=== PATIENT | female | born 1975 ===

== ENCOUNTER 2018-12-18 15:05 | Emergency (ER) | payer MEDICAID ==
[2018-12-18 15:17] VITALS: TEMP 98.2; O2SAT 100
[2018-12-18] MEDS ORDERED: guaiFENesin 200 mg/10 ml Syrup UD PO ONE (15:37)
[2018-12-18] MEDS ORDERED: Albuterol-Ipratrop 3 mg / 0.5 (3 ml) UD IH STA (15:37)
--- NOTE | 2018-12-18 15:43 | ED PDOC ---
Arrival/HPI - General Chief Complaint: Shortness Of Breath Time Seen by Provider: 12/18/18 15:12 Historian: Patient - History of Present Illness Narrative History of Present Illness (Text): 12/18/18 15:41 A 43 year old female, whose past medical history includes asthma, hypertension, and diabetes, presents to the emergency department complaining of cough, congestion, and asthma symptoms intermittently for 1 month. Patient reports also experiencing body aches. Patient denies any nausea, vomiting, chest pain, shortness of breath, or any other complaints at this time. Denies any recent travel or any sick contacts. PMD: Dr. Newton Time/Duration: Other (1 month) Symptom Course: Intermittent Past Medical History - Provider Review Nursing Documentation Reviewed: Yes - Infectious Disease Hx of Infectious Diseases: None - Reproductive Menopause: No - Cardiac Hx Cardiac Disorders: Yes Hx Hypertension: Yes - Pulmonary Other/Comment: enlarged heart - Endocrine/Metabolic Hx Diabetes Mellitus Type 2: Yes - Hematological/Oncological Hx Blood Disorders: No - Psychiatric Hx Substance Use: No - Anesthesia Hx Anesthesia: No Family/Social History - Physician Review Nursing Documentation Reviewed: Yes Family/Social History: No Known Family HX Smoking Status: Unknown If Ever Smoked Hx Alcohol Use: No Hx Substance Use: No Allergies/Home Meds Allergies/Adverse Reactions: Allergies No Known Allergies Allergy (Verified 12/18/18 15:17) Home Medications: Home Meds Medication Instructions Recorded Confirmed Labetalol [Trandate] 100 mg PO DAILY 12/18/18 12/18/18 MetFORMIN [glucOPHAGE] 500 mg PO TID 12/18/18 12/18/18 amLODIPine [Norvasc] 10 mg PO DAILY 12/18/18 12/18/18 Review of Systems - Physician Review All systems were reviewed & negative as marked: Yes - Review of Systems ENT: Sinus Congestion Respiratory: Cough, Wheezing. absent: SOB Cardiovascular: absent: Chest Pain Gastrointestinal: absent: Nausea, Vomiting Physical Exam Vital Signs Reviewed: Yes Vital Signs Temp Pulse Resp BP Pulse Ox 12/18/18 15:13 98.2 F 82 20 164/92 H 100 Temperature: Afebrile Blood Pressure: Hypertensive Pulse: Regular Respiratory Rate: Normal Appearance: Positive for: Well-Appearing, Non-Toxic, Comfortable Pain Distress: Mild Mental Status: Positive for: Alert and Oriented X 3 - Systems Exam Head: Present: Atraumatic, Normocephalic Pupils: Present: PERRL Extroacular Muscles: Present: EOMI Conjunctiva: Present: Normal Mouth: Present: Moist Mucous Membranes Neck: Present: Normal Range of Motion Respiratory/Chest: Present: Clear to Auscultation, Good Air Exchange. No: Respiratory Distress, Accessory Muscle Use Cardiovascular: Present: Regular Rate and Rhythm, Normal S1, S2. No: Murmurs Abdomen: No: Tenderness, Distention, Peritoneal Signs Back: Present: Normal Inspection Upper Extremity: Present: Normal Inspection. No: Cyanosis, Edema Lower Extremity: Present: Normal Inspection. No: Edema Neurological: Present: GCS=15, CN II-XII Intact, Speech Normal Skin: Present: Warm, Dry, Normal Color. No: Rashes Psychiatric: Present: Alert, Oriented x 3, Normal Insight, Normal Concentration Medical Decision Making ED Course and Treatment: 12/18/18 15:42 Impression: 43 year old female with cough, congestion, and asthma symptoms. Plan: -- Chest X-ray -- Duoneb -- Robitussin -- POC Urine Test -- Influenza A/B Test -- Reassess and disposition Progress Notes: 12/18/18 16:45 CXR : NAD. Rapid flu : (-). On reevaluation, patient denies any CP or SOB. On exam, patient remains awake alert and oriented 3 in no acute distress. Results d/w the patient, diagnosis of bronchitis d/w the patient. Advised to follow up with primary care physician in 1-2 days without fail. Advised to take medication as prescribed. Return to the emergency room at any time for any new or worsening symptoms. Patient states she fully agrees with and understands discharge instructions. States that she agrees with the plan and disposition. Verbalized and repeated discharge instructions and plan. I have given the patient opportunity to ask any additional questions. - RAD Interpretation Radiology Orders: 12/18/18 15:37 CHEST TWO VIEWS (PA/LAT) [RAD] Stat - Medication Orders Current Medication Orders: Discontinued Medications Albuterol/Ipratropium (Duoneb 3 Mg/0.5 Mg (3 Ml) Ud) 3 ml IH STAT STA Stop: 12/18/18 15:38 Guaifenesin (Robitussin) 200 mg PO ONCE ONE Stop: 12/18/18 15:38 - PA / [employer]AR[employer] IMAGE CONSULTANT / Resident Statement / has reviewed & agrees with the documentation as recorded. - Scribe Statement The provider has reviewed the documentation as recorded by the Yuly Roth Provider Scribe Attestation: All medical record entries made by the Yuly were at my direction and personally dictated by me. I have reviewed the chart and agree that the record accurately reflects my personal performance of the history, physical exam, medical decision making, and the department course for this patient. I have also personally directed, reviewed, and agree with the discharge instructions and disposition. Disposition/Present on Arrival - Present on Arrival Any Indicators Present on Arrival: No History of DVT/PE: No History of Uncontrolled Diabetes: No Urinary Catheter: No History of Decub. Ulcer: No History Surgical Site Infection Following: None - Disposition Have Diagnosis and Disposition been Completed?: Yes Diagnosis: Acute bronchitis Disposition: HOME/ ROUTINE Disposition Time: 16:45 Patient Plan: Discharge Patient Problems: Current Active Problems Problem Status Onset Acute bronchitis Acute Condition: STABLE Discharge Instructions (ExitCare): Acute Bronchitis, Adult (DC) Additional Instructions: Thank you for letting us take care of you today. You were treated for acute bronchitis. The emergency medical care you received today was directed at your acute symptoms. If you were prescribed any medication, please fill it and take as directed. It may take several days for your symptoms to resolve. Return to the Emergency Department if your symptoms worsen, do not improve, or if you have any other problems. Please contact your doctor in 2 days for re-evaluation and follow up. Bring any paperwork you were given at discharge with you along with any medications you are taking to your follow up visit. Our treatment cannot replace ongoing medical care by a primary care provider (PCP) outside of the emergency department. Thank you for allowing the [facility] team to be part of your care today. If you had an X-Ray : A Radiologist will review the ED reading if any change in treatment is needed we will contact you. Prescriptions: Albuterol 0.083% [Albuterol Sulfate 3 Ml] 3 ml IH Q4 #100 neb Azithromycin [Z-Danny] 250 mg PO DAILY #6 tab Guaifenesin 400 mg PO QID #20 tablet Nebulizer [Aeroeclipse II] 1 each MC DAILY #1 each Referrals: Grzegorz Benitez MD [Primary Care Provider] - Follow up with primary Forms: [facility] (Turkish), WORK NOTE
--- NOTE | 2018-12-18 16:48 | RAD ---
HISTORY: cough COMPARISON: None available. TECHNIQUE: Chest PA and lateral, 2 views FINDINGS: LUNGS: No focal consolidation. Please note that chest x-ray has limited sensitivity for the detection of pulmonary masses. PLEURA: No significant pleural effusion identified. No definite pneumothorax . CARDIOVASCULAR: Heart size appears within normal limits. No atherosclerotic calcification present. OSSEOUS STRUCTURES: Mild degenerative changes. VISUALIZED UPPER ABDOMEN: Unremarkable. OTHER FINDINGS: None. IMPRESSION: No focal consolidation.
[2018-12-18 17:00] VITALS: RESP 18
[2018-12-18 17:01] VITALS: BP 152/86; PULSE 72
== END 2018-12-18 17:08 | disposition home or self-care (01) ==
LOC: MERGE 15:05 → ED 15:05
DX: J20.9 Acute bronchitis, unspecified (principal); E11.9 Type 2 diabetes mellitus without complications; I10 Essential (primary) hypertension

== ENCOUNTER 2018-12-22 12:54 | Emergency (ER) | payer MEDICAID ==
[2018-12-22 12:59] VITALS: BMI 36.9
[2018-12-22 13:03] VITALS: TEMP 97.4
--- NOTE | 2018-12-22 13:20 | ED PDOC ---
Arrival/HPI - General Chief Complaint: Trauma Historian: Patient - History of Present Illness Narrative History of Present Illness (Text): 12/22/18 13:15 43 y/o female, pmh including htn/dm/asthma, nkda, c/o lower back/rt. wrist/lt. knee/rt. rib pain s/p fall x 2 hours. Pt. stated that she tripped and fall on the curb side, landed on the lower back/rt. wrist/lt. knee/rt. rib regions, no head/neck injury, no LOC, no numbness or tingling, no urinary or bowel incontinence/retentions, no dizziness, no change in vision, no palpitation, no abdominal or pelvic pain, no other medical or psychological complaints. Past Medical History - Provider Review Nursing Documentation Reviewed: Yes - Infectious Disease Hx of Infectious Diseases: None - Cardiac Hx Cardiac Disorders: Yes Hx Hypertension: Yes Other/Comment: "enlarged heart" - Pulmonary Hx Asthma: Yes Other/Comment: enlarged heart - Endocrine/Metabolic Hx Diabetes Mellitus Type 2: Yes - Hematological/Oncological Hx Blood Disorders: No - Psychiatric Hx Substance Use: No - Anesthesia Hx Anesthesia: No Family/Social History - Physician Review Nursing Documentation Reviewed: Yes Family/Social History: Unknown Family HX Smoking Status: Never Smoked Hx Alcohol Use: No Hx Substance Use: No Allergies/Home Meds Allergies/Adverse Reactions: Allergies No Known Allergies Allergy (Verified 12/22/18 12:59) Home Medications: Home Meds Medication Instructions Recorded Confirmed Labetalol [Trandate] 100 mg PO DAILY 12/18/18 12/18/18 MetFORMIN [glucOPHAGE] 500 mg PO TID 12/18/18 12/18/18 amLODIPine [Norvasc] 10 mg PO DAILY 12/18/18 12/18/18 Review of Systems - Review of Systems Constitutional: absent: Fatigue, Fevers Eyes: absent: Vision Changes ENT: absent: Hearing Changes Respiratory: absent: SOB, Cough Cardiovascular: absent: Chest Pain Gastrointestinal: absent: Abdominal Pain, Nausea, Vomiting Musculoskeletal: Arthralgias, Back Pain. absent: Neck Pain, Joint Swelling, Myalgias Skin: absent: Rash, Pruritis Neurological: absent: Headache, Dizziness Psychiatric: absent: Anxiety, Depression, Suicidal Ideation Physical Exam Vital Signs Reviewed: Yes Vital Signs Temp Pulse Resp BP Pulse Ox 04/11/19 13:01 97.4 F L 79 20 164/105 H 100 Temperature: Afebrile Blood Pressure: Hypertensive Pulse: Regular Respiratory Rate: Normal Appearance: Positive for: Well-Appearing, Non-Toxic, Comfortable Pain Distress: Moderate Mental Status: Positive for: Alert and Oriented X 3 - Systems Exam Head: Present: Atraumatic, Normocephalic, Other (no facial bony tenderness). No: Tenderness, Contusion, Swelling, Ecchymosis, Abrasion, Laceration Pupils: Present: PERRL Extroacular Muscles: Present: EOMI Conjunctiva: Present: Normal Mouth: Present: Moist Mucous Membranes Neck: Present: Normal Range of Motion Respiratory/Chest: Present: Clear to Auscultation, Good Air Exchange, Tender to Palpation (rt. rib region anteriorly). No: Respiratory Distress, Accessory Muscle Use, Wheezes, Decreased Breath Sounds, Rales, Retracting, Rhonchi, Tachypneic Cardiovascular: Present: Regular Rate and Rhythm, Normal S1, S2. No: Murmurs Abdomen: No: Tenderness, Distention, Peritoneal Signs, Rebound, Guarding Back: Present: Normal Inspection, Other (thoracic to LS spine: no midline tenderness or step off, no paraspinal tenderness, no cva tenderness, SLR test negative, FROM without limitation, sensation intact, motor 5/5, no saddling gait. ). No: CVA Tenderness, Midline Tenderness, Paraspinal Tenderness, Pain with Leg Raise, Decubitus Ulcer Upper Extremity: Present: Normal Inspection, Normal ROM, Neurovascularly Intact, Other (Rt. wrist: no tenderness or swelling, no deformity, no scaphoid tenderness, FROM without limitation, sensation intact, motor 5/5, +radial pulse, capillary refill< 2 seconds, neurovascular intact. ). No: Cyanosis, Edema, Deformity Lower Extremity: Present: Normal Inspection, NORMAL PULSES, Normal ROM, Neurovascularly Intact, Capillary Refill < 2 s, Other (Bilateral knees: mild anterior knee tenderness, no abrasion/laceration, FROM without limitation, sensation intact, motor 5/5, +DPPT pulses, capillary refill< 2 seconds, neurovascular intact. ). No: Edema, CALF TENDERNESS, Deformity Neurological: Present: GCS=15, CN II-XII Intact, Speech Normal, Motor Func Grossly Intact, Normal Cerebellar Funct, Gait Normal, Memory Normal Skin: Present: Warm, Dry, Normal Color. No: Rashes Psychiatric: Present: Alert, Oriented x 3, Normal Insight, Normal Concentration Medical Decision Making ED Course and Treatment: 12/22/18 13:28 -Xrays -Toradol/percocet -Observe and reassess 12/22/18 18:26 -Urine hcg -Rt. rib/chest xray Unremarkable radiographs of the chest and right ribs. No right rib fracture. -Rt. wrist xray: Unremarkable right wrist radiographs. -Bilateral knee: Prominent soft tissue edema and likely contusion/hematoma ov erlying the region of the patella and distal quadriceps tendon right knee no acute fracture dislocation appreciated either knee. Degenerative changes seen at the bilateral medial femorotibial compartments as per above. No destructive bony lesion appreciable. -LS spine xray No fracture or spondylolisthesis. Questionable transitional L5 or S1 vertebral body. -Pt. request percocet for pain to be discharged, advised take it before sleeping. -Discharge home with motrin, percocet, tyelr wrap, crutches, ice compression, weight bearing as tolerated, follow up with your own pmd and orthopedic within 2 days, return to the ER for any new or worsening signs or symptoms. - RAD Interpretation Radiology Orders: -Rt. rib/chest xray Date of service: 12/22/2018 PROCEDURE: Radiographs of the Chest and Right Ribs. HISTORY: fall, pain COMPARISON: None available. TECHNIQUE: Frontal radiograph of the chest and multiple oblique radiographs of the right ribs were obtained. 4 views obtained. FINDINGS: RIGHT RIBS: No fracture or focal lesion visualized. LUNGS: Clear. PLEURA: No pneumothorax or pleural fluid. CARDIOVASCULAR: Likely technically magnified cardiac size. No pulmonary vascular congestion. No pulmonary vascular congestion. No aortic atherosclerotic calcification present OTHER FINDINGS: None. IMPRESSION: Unremarkable radiographs of the chest and right ribs. No right rib fracture. -Rt. wrist xray: Date of service: 12/22/2018 PROCEDURE: Right Wrist Radiographs. HISTORY: fall, pain COMPARISON: None. TECHNIQUE: Three views obtained. FINDINGS: BONES: No acute fracture or destructive bony lesion identified. JOINTS: Normal. No dislocation. SOFT TISSUES: Normal. OTHER FINDINGS: None. IMPRESSION: Unremarkable right wrist radiographs. Bilateral knee: Date of service: 12/22/2018 PROCEDURE: Bilateral Knee Radiographs. HISTORY: fall COMPARISON: None. TECHNIQUE: 4 views obtained. FINDINGS: BONES: Right Knee: Normal. No fracture. Left Knee: Normal. No fracture. JOINTS: Right Knee: No subluxation or dislocation. Left knee: No subluxation or dislocation. There is bilateral medial femorotibial compartment joint space narrowing suggesting likely limited chondromalacia. Patellofemoral articulations appear unremarkable bilaterally. SOFT TISSUES: Right Knee: Prominent soft tissue team and likely hematoma are seen overlying the patella and quadriceps tendon region in the lateral projection. No prominent suprapatellar bursa effusion. Left Knee: Normal. JOINT EFFUSION: Right Knee: None. Left Knee: None. OTHER FINDINGS: None. IMPRESSION: Prominent soft tissue edema and likely contusion/hematoma overlying the region of the patella and distal quadriceps tendon right knee no acute fracture dislocation appreciated either knee. Degenerative changes seen at the bilateral medial femorotibial compartments as per above. No destructive bony lesion appreciable. -LS spine xray Date of service: 12/22/2018 PROCEDURE: Radiographs of the Lumbar Spine. HISTORY: fall, low back pain COMPARISON: No prior. TECHNIQUE: 5 views obtained. FINDINGS: BONES: Normal alignment. No listhesis. No fracture. DISC SPACES: Unremarkable. OTHER FINDINGS: Questionable transitional L5 vertebral body or S1. IMPRESSION: No fracture or spondylolisthesis. Questionable transitional L5 or S1 vertebral body. Printer Repair Technician: Radiologist - PA / OPERATOR AUTOMATED PROCESS / Resident Statement / has reviewed & agrees with the documentation as recorded. Disposition/Present on Arrival - Present on Arrival Any Indicators Present on Arrival: No History of DVT/PE: No History of Uncontrolled Diabetes: No Urinary Catheter: No History of Decub. Ulcer: No History Surgical Site Infection Following: None - Disposition Have Diagnosis and Disposition been Completed?: Yes Diagnosis: Fall, Back pain, Arthralgia Disposition: HOME/ ROUTINE Disposition Time: 17:04 Patient Plan: Discharge Patient Problems: Current Active Problems Problem Status Onset Fall Acute Back pain Acute Arthralgia Acute Condition: GOOD Additional Instructions: -Discharge home with motrin, percocet, tyler wrap, crutches, ice compression, weight bearing as tolerated, follow up with your own pmd and orthopedic within 2 days, return to the ER for any new or worsening signs or symptoms. Prescriptions: Ibuprofen [Motrin] 600 mg PO QID PRN #30 tab PRN Reason: Other oxyCODONE/Acetaminophen [Percocet 5/325 mg Tab] 1 tab PO TID PRN #6 tab PRN Reason: Other Referrals: [facility] [place] - Follow up with primary Forms: [employer] (Israeli), WORK NOTE
[2018-12-22] MEDS ORDERED: Oxycodone/Acetaminophen 5/325 mg Tab PO STA (13:21)
--- NOTE | 2018-12-22 16:38 | RAD ---
Date of service: 12/22/2018 PROCEDURE: Right Wrist Radiographs. HISTORY: fall, pain COMPARISON: None. TECHNIQUE: Three views obtained. FINDINGS: BONES: No acute fracture or destructive bony lesion identified. JOINTS: Normal. No dislocation. SOFT TISSUES: Normal. OTHER FINDINGS: None. IMPRESSION: Unremarkable right wrist radiographs.
--- NOTE | 2018-12-22 16:40 | RAD ---
Date of service: 12/22/2018 PROCEDURE: Bilateral Knee Radiographs. HISTORY: fall COMPARISON: None. TECHNIQUE: 4 views obtained. FINDINGS: BONES: Right Knee: Normal. No fracture. Left Knee: Normal. No fracture. JOINTS: Right Knee: No subluxation or dislocation. Left knee: No subluxation or dislocation. There is bilateral medial femorotibial compartment joint space narrowing suggesting likely limited chondromalacia. Patellofemoral articulations appear unremarkable bilaterally. SOFT TISSUES: Right Knee: Prominent soft tissue team and likely hematoma are seen overlying the patella and quadriceps tendon region in the lateral projection. No prominent suprapatellar bursa effusion. Left Knee: Normal. JOINT EFFUSION: Right Knee: None. Left Knee: None. OTHER FINDINGS: None. IMPRESSION: Prominent soft tissue edema and likely contusion/hematoma overlying the region of the patella and distal quadriceps tendon right knee no acute fracture dislocation appreciated either knee. Degenerative changes seen at the bilateral medial femorotibial compartments as per above. No destructive bony lesion appreciable.
--- NOTE | 2018-12-22 16:41 | RAD ---
Date of service: 12/22/2018 PROCEDURE: Radiographs of the Lumbar Spine. HISTORY: fall, low back pain COMPARISON: No prior. TECHNIQUE: 5 views obtained. FINDINGS: BONES: Normal alignment. No listhesis. No fracture. DISC SPACES: Unremarkable. OTHER FINDINGS: Questionable transitional L5 vertebral body or S1. IMPRESSION: No fracture or spondylolisthesis. Questionable transitional L5 or S1 vertebral body.
--- NOTE | 2018-12-22 16:43 | RAD ---
Date of service: 12/22/2018 PROCEDURE: Radiographs of the Chest and Right Ribs. HISTORY: fall, pain COMPARISON: None available. TECHNIQUE: Frontal radiograph of the chest and multiple oblique radiographs of the right ribs were obtained. 4 views obtained. FINDINGS: RIGHT RIBS: No fracture or focal lesion visualized. LUNGS: Clear. PLEURA: No pneumothorax or pleural fluid. CARDIOVASCULAR: Likely technically magnified cardiac size. No pulmonary vascular congestion. No pulmonary vascular congestion. No aortic atherosclerotic calcification present OTHER FINDINGS: None. IMPRESSION: Unremarkable radiographs of the chest and right ribs. No right rib fracture.
[2018-12-22 17:10] VITALS: RESP 18
[2018-12-22 18:11] VITALS: BP 155/88; PULSE 84; O2SAT 99
== END 2018-12-22 19:28 | disposition home or self-care (01) ==
LOC: ED 12:54
DX: M54.5 Low back pain (principal); M25.531 Pain in right wrist; M25.562 Pain in left knee; W01.0XXA Fall on same level from slipping, tripping and stumbling without subsequent striking against object, initial encounter; Y92.480 Sidewalk as the place of occurrence of the external cause
CPT/HCPCS: 71101; 72110; 73110; 73560; 81025; 96372; 99285; J1885